=== PATIENT | female | born 1945 | race Caucasian/White ===

== ENCOUNTER 2017-11-03 10:34 | Outpatient (CLI) | payer MEDICARE, MEDICAID ==
[~2017-11-03 10:34] MED LIST: FERUMOXYTOL (NON-ESRD) 510 MG/NS 100 ML IV PRN
[2017-11-03 18:59] VITALS: BP 116/53
== END 2017-11-03 11:48 | disposition home or self-care (01) ==
LOC: II 10:34 → 5TH 10:35 → II 11:48
PROVIDERS: ATTEND Internal Medicine Nephrology
PROC: 3E033GC Introduction of Other Therapeutic Substance into Peripheral Vein, Percutaneous Approach (ICD-10-PCS; principal; 2017-11-03)
DX: D50.8 Other iron deficiency anemias (principal); N18.9 Chronic kidney disease, unspecified
CPT/HCPCS: 96367; Q0138; 96365

== ENCOUNTER 2017-11-10 10:45 | Outpatient (CLI) | payer MEDICARE, MEDICAID ==
[2017-11-10] MEDS ORDERED: FERUMOXYTOL (NON-ESRD) 510 MG/NS 100 ML IV PRN ×2 (11:32)
[2017-11-10 12:17] VITALS: BP 126/47
== END 2017-11-10 12:35 | disposition home or self-care (01) ==
LOC: II 10:45 → 5TH 13:29 → II 13:30
PROVIDERS: ATTEND Internal Medicine Nephrology
PROC: 3E033GC Introduction of Other Therapeutic Substance into Peripheral Vein, Percutaneous Approach (ICD-10-PCS; principal; 2017-11-10)
DX: D50.9 Iron deficiency anemia, unspecified (principal); N18.9 Chronic kidney disease, unspecified
CPT/HCPCS: 96365; Q0138

== ENCOUNTER → 2017-11-14 | Outpatient (CLI) | payer MEDICARE, MEDICAID ==
--- NOTE | 2017-11-14 16:00 | RADIOLOGY REPORT (SQ) ---
EXAM DESCRIPTION: U/S RETROPERITON (RENAL/AORTA) COMPLETED DATE/TIME: 11/14/2017 3:21 pm REASON FOR STUDY: NEUROMUSCULAR DYSFUNCTION OF BLADDER, UNSPECIFIED N31.9 NEUROMUSCULAR DYSFUNCTION OF BLADDER, UNSPECIFIED COMPARISON: None. TECHNIQUE: Dynamic and static grayscale images acquired of the kidneys and bladder and recorded on P ACS. Additional selected color Doppler and spectral images recorded. LIMITATIONS: None. FINDINGS: RIGHT KIDNEY: 10.1 cm. Increased cortical echogenicity. No solid or suspicious masses . No hydronephrosis. No calcifications. LEFT KIDNEY: 9.0 cm. Increased cortical echogenicity. No solid or suspicious masses. No hydron ephrosis. No calcifications. BLADDER: No masses. OTHER: No other significant finding. IMPRESSION: CHRONIC MEDICAL RENAL DISEASE. NO HYDRONEPHROSIS. TECHNICAL DOCUMENTATION: JOB ID: [id number] Track- All Rights Reserved Reading location - IP/workstation name: [email or web address]
== END ==
LOC: RAD 14:53
PROVIDERS: ATTEND Urology
DX: N31.9 Neuromuscular dysfunction of bladder, unspecified (principal); N18.9 Chronic kidney disease, unspecified
CPT/HCPCS: 76770

== ENCOUNTER 2018-02-09 09:05 | Outpatient (CLI) | payer MEDICARE, MEDICAID ==
[~2018-02-09 09:05] MED LIST changes: +FERRIC CARBOXYMALTOSE 750 MG in NORMAL SALINE 250 ML IV PRN; -FERUMOXYTOL (NON-ESRD) 510 MG/NS 100 ML IV PRN
[2018-02-09 10:20] VITALS: BP 107/45
[2018-02-09] MEDS ORDERED: FERRIC CARBOXYMALTOSE INJ 750 MG/15 ML VIAL IV PRN (11:07)
== END 2018-02-09 11:38 | disposition home or self-care (01) ==
LOC: II 09:05 → 5TH 09:06 → II 11:38
PROVIDERS: ATTEND Internal Medicine Nephrology
PROC: 3E033GC Introduction of Other Therapeutic Substance into Peripheral Vein, Percutaneous Approach (ICD-10-PCS; principal; 2018-02-09)
DX: D50.8 Other iron deficiency anemias (principal); N18.3 Chronic kidney disease, stage 3 (moderate)
CPT/HCPCS: 96367; J1439; 96365; J7050

== ENCOUNTER 2018-02-16 08:58 | Outpatient (CLI) | payer MEDICARE, MEDICAID ==
[2018-02-16 09:24] VITALS: BP 111/67
== END 2018-02-16 10:04 | disposition home or self-care (01) ==
LOC: II 08:58 → 5TH 09:00 → II 10:04
PROVIDERS: ATTEND Internal Medicine Nephrology
DX: D64.9 Anemia, unspecified (principal); N18.3 Chronic kidney disease, stage 3 (moderate)
CPT/HCPCS: 96365; J7050; J1439